=== PATIENT | male | born 1955 | race African-American/Black ===

== ENCOUNTER → 2017-05-15 | Outpatient (CLI) | payer OTHER | END | disposition home or self-care (01) | LOC: HKI 13:58 | DX: M16.12 Unilateral primary osteoarthritis, left hip (principal) | CPT/HCPCS: 73502 ==

== ENCOUNTER → 2017-10-02 | Outpatient (CLI) | payer OTHER | END | disposition home or self-care (01) | LOC: HKI 14:16 | DX: Z01.818 Encounter for other preprocedural examination (principal); J44.9 Chronic obstructive pulmonary disease, unspecified; F31.9 Bipolar disorder, unspecified; I10 Essential (primary) hypertension; F17.210 Nicotine dependence, cigarettes, uncomplicated; Z96.642 Presence of left artificial hip joint | CPT/HCPCS: Z7500 ==

== ENCOUNTER 2017-10-03 10:25 | Inpatient (IN) | payer OTHER ==
[~2017-10-03 10:25] MED LIST: CEFAZOLIN 2 GM/50 ML (PMX) 50 ML IVPB; LACTATED RINGER'S 1,000 ML IV*; PROPOFOL 1000 MG INJ; TRANEXAMIC ACID 1,000 MG in NS 100 ML INTRA-OP X1 IVPB
[2017-10-03] MEDS: ONDANSETRON 4 MG INJ IV ×3 (11:13→19:47)
[2017-10-03] MEDS: ACETAMINOPHEN 1000MG/100ML IV 100 ML IVPB (11:13)
[2017-10-03] MEDS: DEXAMETHASONE 4 MG/ML 1 ML INJ IV (11:13)
[2017-10-03] MEDS: CELECOXIB 200 MG CAP PO (11:14)
[2017-10-03] MEDS: LANSOPRAZOLE 30 MG CAP PO (11:14)
[2017-10-03] MEDS: oxyCODONE (CR) 10 MG TAB [oxyCONTIN] PO (11:15)
[2017-10-03] MEDS ORDERED: HYDROmorphONE 1 MG/5 ML IV SYRINGE IV ×3 (11:30)
[2017-10-03] MEDS ORDERED: TRIMETHOBENZAMIDE 100 MG/ML VIAL IM (11:30)
[2017-10-03] MEDS ORDERED: LABETALOL HCL 20MG INJ IV (11:30)
[2017-10-03] MEDS ORDERED: MEPERIDINE 25 MG INJ IV (11:30)
[2017-10-03] MEDS ORDERED: ALBUTEROL 0.083% (NEB) 2.5 MG/3 ML AMP HHN (11:30)
[2017-10-03] MEDS ORDERED: EPHEDrine SULFATE 50 MG/5 ML SYG IV (11:30)
[2017-10-03] MEDS ORDERED: hydrALAzine 20 MG INJ IV (11:30)
[2017-10-03] MEDS ORDERED: OXYCODONE/ACETAMINOPHEN (5/325) TAB PO ×2 (11:30)
[2017-10-03] MEDS ORDERED: FENTAnyl 50 MCG/ML VIAL IV ×3 (11:30)
[2017-10-03] MEDS ORDERED: ONDANSETRON 4 MG INJ IV (11:30)
[2017-10-03] MEDS ORDERED: IPRATROPIUM (NEB) 0.5 MG/2.5 ML AMP HHN (11:30)
[2017-10-03] MEDS ORDERED: DIPHENHYDRAMINE 50 MG INJ IV ×2 (11:30→13:00)
[2017-10-03] MEDS ORDERED: NALOXONE (0.4 MG/ML) INJ IV ×3 (11:30→13:00)
[2017-10-03] MEDS ORDERED: MIDAZOLAM 1 MG/ML 2 ML INJ IV (11:30)
[2017-10-03] MEDS ORDERED: GLYCOPYRROLATE 0.4 MG INJ (12:00)
[2017-10-03] MEDS ORDERED: CEFAZOLIN 1 GM INJ (12:00)
[2017-10-03] MEDS ORDERED: ROCURONIUM 50 MG INJ (12:00)
[2017-10-03] MEDS ORDERED: MIDAZOLAM 1 MG/ML 2 ML INJ (12:00)
[2017-10-03] MEDS ORDERED: NEOSTIGMINE 3 MG/3 ML SYRINGE (12:00)
[2017-10-03] MEDS ORDERED: ONDANSETRON 4 MG INJ (12:00)
[2017-10-03] MEDS ORDERED: PROPOFOL 20 ML (12:00)
[2017-10-03] MEDS ORDERED: FENTAnyl 50 MCG/ML VIAL (12:00)
[2017-10-03] MEDS ORDERED: BUPIVACAINE 0.75%/DEXT (SPINAL) 2 ML INJ (12:01)
[2017-10-03] MEDS ORDERED: DEXAMETHASONE 4 MG/ML 1 ML INJ (12:01)
[2017-10-03] MEDS ORDERED: morphine SULFATE/PF (10 MG/10 ML) INJ (12:01)
[2017-10-03] MEDS ORDERED: BETHANECHOL 25 MG TAB PO (13:00)
[2017-10-03] MEDS ORDERED: BISACODYL 10 MG SUPP PR (13:00)
[2017-10-03] MEDS ORDERED: KETOROLAC 15 MG INJ IV (13:00)
[2017-10-03] MEDS ORDERED: NA PHOSPHATE/BIPHOS 133 ML ENEMA PR (13:00)
[2017-10-03] MEDS: DOCUSATE SODIUM 100 MG CAP PO (13:00)
[2017-10-03] MEDS: ASPIRIN (EC) 325 MG TAB PO ×2 (13:00→17:42)
[2017-10-03] MEDS ORDERED: SENNA/DOCUSATE NA (8.6MG/50MG) TAB PO (13:00)
[2017-10-03] MEDS: CEFAZOLIN 1 GM/50 ML (PMX) 50 ML IVPB ×2 (13:00→21:33)
[2017-10-03] MEDS ORDERED: oxyCODONE 5 MG TAB PO ×3 (13:00)
[2017-10-03] MEDS ORDERED: NACL 0.9% 3 ML SYG IV (13:00)
[2017-10-03] MEDS ORDERED: MAGNESIUM HYDROXIDE 30ML CUP PO (13:00)
[2017-10-03] MEDS ORDERED: BACITRACIN 50000 UNITS INJ (13:15)
[2017-10-03] MEDS: TRANEXAMIC ACID 1,000 MG in NS 100 ML PRE-OP X1 IVPB ×2 (14:13)
[2017-10-03] MEDS: HIP PAIN COCKTAIL (CEFUROXIME) INJ (14:26)
[2017-10-03] MEDS: POLYMYXIN B 500000 UNIT INJ (14:26)
[2017-10-03] MEDS: BACITRACIN 50000 UNITS INJ IRR (14:26)
[2017-10-03] MEDS: POLYMYXIN/BACITRACIN 1L IRRIG (15:45)
[2017-10-03] MEDS: SOD CHLORIDE 0.9% 1,000 ML IV (19:48)
[2017-10-03] MEDS: DIVALPROEX (EC) 250 MG TAB PO (21:33)
[2017-10-03] MEDS: GABAPENTIN 100 MG CAP PO (21:33)
[2017-10-04] MEDS: SOD CHLORIDE 0.9% 1,000 ML IV ×2 (01:03→13:45)
[2017-10-04] MEDS: ONDANSETRON 4 MG INJ IV ×2 (01:03→07:00)
[2017-10-04 04:52] LABS: ADD MAN DIFF? NO
[2017-10-04 04:59] LABS: BASOPHILS % 0.1 % (0.0-2.0); HEMATOCRIT 38.8 % (42.0-52.0); HEMOGLOBIN 13.4 g/dl (14.0-18.0); LYMPHOCYTES # 1.1 10^3/ul (0.8-2.9); LYMPHOCYTES % 8.9 % (15.0-51.0); MEAN CORPUSCULAR HEMOGLOBIN 33.4 pg (29.0-33.0); MEAN CORPUSCULAR HGB CONC 34.5 g/dl (32.0-37.0); MEAN CORPUSCULAR VOLUME 96.8 fl (82.0-101.0); MEAN PLATELET VOLUME 9.4 fl (7.4-10.4); MONOCYTE # 0.8 10^3/ul (0.3-0.9); NEUTROPHILS % 83.7 % (39.0-77.0); PLATELET COUNT 273 10^3/UL (140-415); RED BLOOD COUNT 4.01 10^6/ul (4.70-6.10); RED CELL DISTRIBUTION WIDTH 12.7 % (11.5-14.5)
[2017-10-04 05:19] LABS: ANION GAP 12 (8-16); BLOOD UREA NITROGEN 17 mg/dl (7-20); CALCIUM 8.9 mg/dl (8.4-10.2); CARBON DIOXIDE 24 mmol/L (21-31); CHLORIDE 109 mmol/L (97-110); CREATININE 0.96 mg/dl (0.61-1.24); GLUCOSE 131 mg/dl (70-220); POTASSIUM 4.8 mmol/L (3.5-5.1); SODIUM 140 mmol/L (135-144)
[2017-10-04] MEDS: PANTOPRAZOLE (EC) 40 MG TAB PO (06:02)
[2017-10-04] MEDS: CEFAZOLIN 1 GM/50 ML (PMX) 50 ML IVPB (06:02)
[2017-10-04 07:08] LABS: ADD UMIC YES; UR ASCORBIC ACID NEGATIVE (NEGATIVE); UR BACTERIA MODERATE /HPF (NONE SEEN); UR BILIRUBIN (Dip) NEGATIVE (NEGATIVE); UR BLOOD (Dip) 1+ mg/dL (NEGATIVE); UR CLARITY TURBID (CLEAR); UR COLOR YELLOW (YELLOW); UR GLUCOSE (Dip) NEGATIVE (NEGATIVE); UR KETONES (Dip) NEGATIVE (NEGATIVE); UR LEUKOCYTE ESTERASE (Dip) 3+ Leu/ul (NEGATIVE); UR MUCUS FEW /HPF (NONE SEEN); UR NITRITE (Dip) NEGATIVE (NEGATIVE); UR RBC 15 /HPF (0-5); UR SPECIFIC GRAVITY (Dip) 1.013 (1.003-1.030); UR SQUAMOUS EPITHELIAL CELL MANY /HPF (FEW); UR TOTAL PROTEIN (Dip) 2+ mg/dl (NEGATIVE); UR UROBILINOGEN (Dip) 1+ mg/dL (NEGATIVE); UR WBC > 182 /HPF (0-5)
[2017-10-04] MEDS: GABAPENTIN 100 MG CAP PO (08:48)
[2017-10-04] MEDS: ASPIRIN (EC) 325 MG TAB PO (08:48)
[2017-10-04] MEDS: FERROUS FUMARATE (SR) TAB PO (08:48)
[2017-10-04] MEDS: CELECOXIB 200 MG CAP PO (08:48)
[2017-10-04] MEDS: AMLODIPINE 10 MG TAB PO (08:49)
[2017-10-04] MEDS: DOCUSATE SODIUM 100 MG CAP PO (09:00)
[2017-10-04] MEDS ORDERED: NON-FORMULARY/PATIENT OWN MED (Abacavir/Dolutegravir/Lamivudi (Triumeq Tablet) 1 EACH) PO (09:00)
[2017-10-04] MEDS: DOLUTEGRAVIR SODIUM 50 MG TABLET PO (09:35)
[2017-10-04] MEDS: ABACAVIR/LAMIVUDINE TAB PO (09:35)
== END 2017-10-04 16:40 | disposition home health service (06) | DRG 469 ==
LOC: REC 10:25 → MS1 19:03
PROC: 0SRB04A Replacement of Left Hip Joint with Ceramic on Polyethylene Synthetic Substitute, Uncemented, Open Approach (ICD-10-PCS; principal; 2017-10-03 13:30)
DX: M16.12 Unilateral primary osteoarthritis, left hip (principal); B20 Human immunodeficiency virus [HIV] disease; Z72.0 Tobacco use
CPT/HCPCS: 72170; 73500; 73530; 80048; 81001; 85025; 86850; 86900; 86901; 86920; 87086; 88304; 88311; 97116; 97161; 97165; 97530

== ENCOUNTER → 2017-10-22 | Outpatient (CLI) | payer OTHER | END | disposition home or self-care (01) | LOC: HKI 11:16 | DX: Z09 Encounter for follow-up examination after completed treatment for conditions other than malignant neoplasm (principal); Z96.642 Presence of left artificial hip joint | CPT/HCPCS: 73502 ==

== ENCOUNTER → 2017-11-14 | Outpatient (CLI) | payer OTHER | END | disposition home or self-care (01) | LOC: HKI 09:51 | DX: Z09 Encounter for follow-up examination after completed treatment for conditions other than malignant neoplasm (principal); Z96.642 Presence of left artificial hip joint; M19.011 Primary osteoarthritis, right shoulder | CPT/HCPCS: 73502 ==

== ENCOUNTER → 2018-02-15 | Outpatient (CLI) | payer OTHER | END | disposition home or self-care (01) | LOC: HKI 10:44 | DX: Z09 Encounter for follow-up examination after completed treatment for conditions other than malignant neoplasm (principal); Z96.642 Presence of left artificial hip joint | CPT/HCPCS: 73502 ==